=== PATIENT | female | born 1960 | race Caucasian/White ===

== ENCOUNTER 2023-11-28 19:05 | Emergency (ER) | payer MEDICAID ==
[~2023-11-28] VITALS: Ht 160 cm; Wt 51.3 kg
[2023-11-28 19:12] VITALS: BP 163/81; PULSE 96; RESP 15; TEMP 98.6; O2SAT 99
[2023-11-28 20:03] LABS: BASOPHILS % (AUTO) 0.5 % (0.0-2.0); EOSINOPHILS # (AUTO) 0.1 K/uL (0-0.4); EOSINOPHILS % (AUTO) 1.6 % (0.0-4.0); HEMATOCRIT 37.2 % (36-48); HEMOGLOBIN 12.4 g/dL (12.0-16.0); LYMPHOCYTES # (AUTO) 2.6 K/uL (2.5-16.5); MEAN CORPUSCULAR HEMOGLOBIN 28 pg (27-31); MEAN CORPUSCULAR HGB CONC 33 g/dL (33-37); MEAN CORPUSCULAR VOLUME 85.2 fL (80-94); MONOCYTES # (AUTO) 0.6 K/uL (0.8-1.0); MONOCYTES % (AUTO) 7.6 % (1.7-9.3); NEUTROPHILS # (AUTO) 4.8 K/uL (1.8-7.7); NEUTROPHILS % (AUTO) 58.3 % (42.2-75.2); PLATELET COUNT (AUTO) 246 K/uL (140-450); RED BLOOD CELL COUNT(AUTO) 4.36 MIL/uL (4.20-5.40); RED CELL DISTRIBUTION WIDTH 13.3 % (11.6-13.7); WHITE BLOOD COUNT (AUTO) 8.2 K/uL (4.8-10.8)
[2023-11-28 20:08] LABS: BILIRUBIN,URINE NEGATIVE (NEGATIVE); BLOOD, URINE 2+ (NEGATIVE); COLOR,URINE YELLOW (YELLOW); LEUKOCYTE ESTERASE ,URINE 2+ (NEGATIVE); NITRITE, URINE NEGATIVE (NEGATIVE); PROTEIN,URINE NEGATIVE (NEGATIVE); UGLUCOSE NEGATIVE (NEGATIVE); UROBILINOGEN,URINE 0.2 EU/dL (0.2 - 1)
[2023-11-28 20:11] LABS: APPEARANCE,URINE SLIGHTLY HAZY (CLEAR)
[2023-11-28 20:18] LABS: BACTERIA,URINE 3+ /HPF (None Seen); MUCUS,URINE 3+ /LPF (None Seen); SQUAMOUS EPITHELIAL CELL,UR 4-10 (MOD) /LPF (0-3 (FEW))
[2023-11-28 20:22] LABS: ANION GAP 14.3 (8-16); CALCIUM 9.4 mg/dL (8.5-10.1); CARBON DIOXIDE 27.5 mmol/L (21-32); CREATININE 0.6 mg/dL (0.6-1.3); POTASSIUM 3.8 mmol/L (3.5-5.1)
[2023-11-28 20:27] LABS: ALBUMIN 3.8 g/dL (3.4-5.0); BILIRUBIN,DIRECT 0.2 mg/dL (0.0-0.3); TOTAL PROTEIN, SERUM 7.6 g/dL (6.4-8.2)
[2023-11-28] MEDS ORDERED: PEG4000P3 PO (21:41)
[2023-11-28] MEDS ORDERED: MAGN296S48 PO (21:41)
[2023-11-28] MEDS ORDERED: LACT-191 PO (23:55)
[2023-11-29 00:04] VITALS: BP 152/81; PULSE 94; RESP 14; TEMP 98; O2SAT 99
== END 2023-11-29 00:04 | disposition home or self-care (01) ==
LOC: MED 19:05
DX: K59.00 Constipation, unspecified (principal); K62.5 Hemorrhage of anus and rectum; E11.9 Type 2 diabetes mellitus without complications; Z79.899 Other long term (current) drug therapy
CPT/HCPCS: 36415; 80048; 80076; 81001; 83690; 85025; 87086; 99284